=== PATIENT | female | born 1940 | race Caucasian/White ===

== ENCOUNTER 2018-02-27 07:56 | Emergency (ER) | payer MEDICARE, BC ==
[~2018-02-27] VITALS: Ht 165.1 cm; Wt 75.7 kg
--- NOTE | 2018-02-27 08:02 | NUR ---
Dr Haq at the bedside for MSE.
[2018-02-27] MEDS ORDERED: METOPROLOL (08:09)
[2018-02-27] MEDS ORDERED: LIPITOR (08:09)
--- NOTE | 2018-02-27 08:24 | NUR ---
Pt out of ER for CT.
[2018-02-27 08:32] LABS: BASOPHILS % (AUTO) 0.7 % (0.0-2.0); EOSINOPHILS # (AUTO) 0.3 K/uL (0.0-0.7); EOSINOPHILS % (AUTO) 5.8 % (0.0-7.0); HEMATOCRIT 40.5 % (31.2-41.9); HEMOGLOBIN 13.9 g/dL (10.9-14.3); LYMPHOCYTES # (AUTO) 1.7 K/uL (20.0-40.0); LYMPHOCYTES % (AUTO) 32.1 % (20.5-51.5); MEAN CORPUSCULAR HEMOGLOBIN 31.7 uug (24.7-32.8); MEAN CORPUSCULAR HGB CONC 34 g/dL (32.3-35.6); MEAN CORPUSCULAR VOLUME 92.2 fL (75.5-95.3); MONOCYTES # (AUTO) 0.4 K/uL (2.0-10.0); MONOCYTES % (AUTO) 6.9 % (0.0-11.0); NEUTROPHILS # (AUTO) 2.9 K/uL (1.8-8.9); NEUTROPHILS % (AUTO) 54.5 % (38.5-71.5); PLATELET COUNT (AUTO) 168 K/uL (179-408); RED BLOOD CELL COUNT(AUTO) 4.39 MIL/uL (3.63-4.92); WHITE BLOOD COUNT (AUTO) 5.3 K/uL (3.8-11.8)
[2018-02-27 08:42] LABS: CARBON DIOXIDE 25 mmol/L (21-32); CHLORIDE 107 mmol/L (98-107); CREATININE 0.9 mg/dL (0.6-1.3); GLUCOSE 122 mg/dL (74-106); POTASSIUM 3.7 mmol/L (3.5-5.1); UREA NITROGEN, BLOOD 27 mg/dL (7-18)
[2018-02-27] MEDS ORDERED: MORPHINE SULFATE 4 MG/1 ML DISP.SYRIN IV ONE (08:45)
[2018-02-27] MEDS ORDERED: ONDANSETRON IV *ER 4 MG/2 ML VIAL IV ONE ×2 (08:45→09:30)
[2018-02-27] MEDS ORDERED: ONDANSETRON 4 MG/2 ML VIAL ONE ×2 (08:46→09:19)
[2018-02-27] MEDS ORDERED: MORPHINE SULFATE 4 MG/1 ML DISP.SYRIN ONE (08:46)
[2018-02-27 08:48] LABS: ALANINE AMINOTRANSFERASE 37 U/L (14-59); ALKALINE PHOSPHATASE 46 U/L (50-136); ASPARTATE AMINOTRANSFERASE 23 U/L (15-37); BILIRUBIN,DIRECT 0.1 mg/dL (0.0-0.2); BILIRUBIN,TOTAL 0.4 mg/dL (0.2-1.0); TOTAL PROTEIN, SERUM 6.7 g/dL (6.4-8.2)
[2018-02-27 08:56] LABS: LIPASE 313 U/L (73-393)
--- NOTE | 2018-02-27 09:05 | NUR ---
Dr Haq spoke to Pt's PMD, Dr Adrian.
--- NOTE | 2018-02-27 09:17 | NUR ---
Assissted Pt to walk for couple of min, pt became MD jd aware and med ordered.
--- NOTE | 2018-02-27 09:51 | NUR ---
Pt states feeling fine and wishes to go home.
--- NOTE | 2018-02-27 09:51 | NUR ---
IV removed. Catheter intact and site benign. Pressure and 4x4 gauze applied to site. No bleeding noted.
[2018-02-27 09:52] VITALS: BP 125/69
--- NOTE | 2018-02-27 09:53 | NUR ---
Patient discharged to home in stable conditon. Written and verbal after care instructions given. Patient verbalizes understanding of instructions.
== END 2018-02-27 09:53 | disposition home or self-care (01) ==
LOC: ER 07:59
DX: T14.8XXA Other injury of unspecified body region, initial encounter (principal); R55 Syncope and collapse; I10 Essential (primary) hypertension; E78.00 Pure hypercholesterolemia, unspecified; Z79.899 Other long term (current) drug therapy; W01.0XXA Fall on same level from slipping, tripping and stumbling without subsequent striking against object, initial encounter; Y93.89 Activity, other specified; Y92.89 Other specified places as the place of occurrence of the external cause; Y99.8 Other external cause status
CPT/HCPCS: 36415; 70030-TC; 83690; 85025; 93005; A4663; J2270; J2405